=== PATIENT | male | born 1995 | race Caucasian/White ===

== ENCOUNTER 2016-10-15 22:07 | Emergency (ER) | payer OTHER ==
[~2016-10-15] VITALS: Ht 167.6 cm; Wt 73.2 kg
[~2016-10-15 22:07] MED LIST: Z.0.NO CURRENT MEDS
[2016-10-15 22:13] VITALS: BP 121/76; PULSE 79; RESP 14; TEMP 97.8; O2SAT 98
[2016-10-15 22:19] VITALS: BP 121/76; PULSE 79; RESP 14; TEMP 97.8; O2SAT 98
--- NOTE | 2016-10-15 22:22 | PD ---
HPI Chief Complaint: Injury Time Seen by Provider: 22:15 Travel History International Travel<30 days: No Contact w/Intl Traveler<30days: No Traveled to known affect area: No History of Present Illness HPI 21-year-old male presents for evaluation of left foot pain. He reports that he woke up with pain this morning. Pain seems to be localized to the left first MTP joint. Pain is an aching pain is worse with activity, partially relieved with use [id number] ibuprofen. Denies any specific trauma that he is aware of. Denies any strenuous activity. No history of kill. No significant past medical history. No other complaints. PFSH Past Medical History Diminished Hearing: No Social History Alcohol Use: No Tobacco Use: No Substance Use: No Allergies-Medications (Allergen,Severity, Reaction): Coded Allergies: No Known Allergies (Verified Allergy, Mild, 12/06/06) Reported Meds & Prescriptions Reported Meds & Active Scripts Active Diclofenac Sodium DR (Diclofenac Sodium) 75 Mg Tabdr 75 Mg PO BID 10 Days Reported No Current Meds (Miscellaneous Medication) [facility] [place] Review of Systems Musculoskeletal: Positive: Pain Skin: Positive Other (no bruising or soft tissue swelling) Physical Exam Narrative GENERAL: Well-nourished male in no acute distress SKIN: Warm and dry. No bruising or soft tissue swelling Extremities: There is some tenderness to palpation to left first MTP joint. No erythema or joint effusion. There is some pain with passive and active range of motion at this joint. Data Data Last Documented VS Vital Signs Date Time Temp Pulse Resp B/P Pulse Ox O2 Delivery O2 Flow Rate FiO2 10/15/16 22:19 97.8 79 14 121/76 98 10/15/16 22:13 Room Air Orders Foot, Complete (Aic0wql) (10/15/16 ) Ibuprofen (Motrin) (10/15/16 22:30) Acetamin-Codeine 300-30 Mg (Tylenol-Code (10/15/16 22:45) Splint Or Brace Apply/Monitor (10/15/16 22:35) MDM Medical Decision Making Medical Screen Exam Complete: Yes Emergency Medical Condition: Yes Medical Record Reviewed: Yes Interpretation(s) Foot x-ray CONCLUSION: Anatomic variant bipartite tibial sesamoid. No fracture or subluxation of the left foot. Differential Diagnosis Sprain, septic arthritis, gout pseudogout, Narrative Course 21-year-old male who woke up with pain in the left first MTP joint. The joint is not erythematous or warm or effused to suggest a crystal arthritis or septic arthritis. Suspect a mild sprain to the joint. X-ray reveals no acute abnormalities. The patient was given ibuprofen, Tylenol with Codeine, postop shoe. He has crutches. He is stable for discharge. Diagnosis Primary Impression: Toe pain Qualified Code: M79.675 - Pain of toe of left foot Departure Forms: Tests/Procedures, Work Release Enter return to work date: Oct 17, 2016 Additional Instructions: Rest. Avoid strenuous activity. Medication as needed. Take medication with meals. Follow-up in one to 2 weeks with primary care physician. Return for any emergent medical conditions. Med/Other Pt SpecificInfo: Prescription(s) given Scripts Diclofenac Sodium DR 75 Mg Tabdr75 Mg PO BID 10 Days Ref 0 Prov:Raciel Reed MD 10/15/16 Disposition: 01 DISCHARGE HOME Condition: Stable Pito Vega Oct 15, 2016 22:22
[2016-10-15] MEDS ORDERED: DICL75TA PO (22:23)
[2016-10-15] MEDS ORDERED: IBUPROFEN 800 MG TAB PO ONE (22:30)
--- NOTE | 2016-10-15 22:35 | RADHPO ---
EXAM DATE/TIME: 10/15/2016 22:20 [facility] COMPARISON: No previous studies available for comparison. INDICATIONS : No known injury. Complains of pain to left foot, first digit. MEDICAL HISTORY : None. SURGICAL HISTORY : None. ENCOUNTER: Initial ACUITY: 3 days PAIN SCORE: 8/10 LOCATION: Left foot, first digit FINDINGS: No fracture or subluxation demonstrated. Patient has a bipartite tibial sesamoid which can sometimes be symptomatic and please correlate clinically. No other anatomic variants are demonstrated. Radiogra phic appearance of the soft tissues within normal limits. CONCLUSION: Anatomic variant bipartite tibial sesamoid. No fracture or subluxation of the left foot. Jason Mari MD on October 15, 2016 at 22:32 Board Certified Radiologist. This report was verified electronically.
[2016-10-15] MEDS ORDERED: ACETAMINOPHEN/CODEINE 300 MG/30 MG TAB PO ONE (22:45)
== END 2016-10-15 23:21 | disposition home or self-care (01) ==
LOC: PHEFT 22:07
DX: M79.675 Pain in left toe(s) (principal)
CPT/HCPCS: 73630; 99283; L3260